=== PATIENT | female | born 1955 | race Caucasian/White ===

== ENCOUNTER 2020-06-20 07:51 | Emergency (ER) | payer OTHER ==
[2020-06-20 08:03] VITALS: BP 105/49; PULSE 70; TEMP 99.4; BMI 20.7
[2020-06-20] MEDS ORDERED: KETOROLAC TROMETHAMINE 30 MG/1 ML VIAL IM ONE (08:10)
[2020-06-20] MEDS ORDERED: LIDOCAINE 5% TOPICAL PATCH TP ONE (08:10)
[2020-06-20] MEDS ORDERED: LIDOCAINE 5% TOPICAL PATCH ONE (08:17)
[2020-06-20] MEDS ORDERED: KETOROLAC TROMETHAMINE 30 MG/1 ML VIAL ONE (08:17)
[2020-06-20] MEDS ORDERED: LIDOCAINE PATCH REMOVAL MC SCH (22:00)
== END 2020-06-20 09:46 | disposition home or self-care (01) ==
LOC: FER 07:51
PROC: 3E0233Z Introduction of Anti-inflammatory into Muscle, Percutaneous Approach (ICD-10-PCS; principal; 2020-06-20)
DX: M54.5 Low back pain (principal)
CPT/HCPCS: 72100-TC-FY; 99284-25

== ENCOUNTER 2021-06-13 15:51 | Emergency (ER) | payer OTHER ==
[2021-06-13 16:04] VITALS: BP 133/64; PULSE 73; TEMP 99.1; BMI 20.5
[2021-06-14 23:06] LABS: SARS-CoV-2 NAA Detected (Not Detected)
== END 2021-06-13 16:19 | disposition home or self-care (01) ==
LOC: FER 15:51
DX: J06.9 Acute upper respiratory infection, unspecified (principal); R05.9 Cough, unspecified
CPT/HCPCS: 99283-25; C9803; U0003; U0005